=== PATIENT | male | born 2005 | race Caucasian/White ===

== ENCOUNTER 2024-03-17 04:59 | Emergency (ER) | payer MEDICAID ==
[~2024-03-17] VITALS: Ht 180.3 cm; Wt 77.0 kg
[2024-03-17 05:06] VITALS: TEMP 98.1; O2SAT 100
[2024-03-17] MEDS: ACETAMINOPHEN 325MG TABLET PO ONE (06:30)
[2024-03-17] MEDS ORDERED: TOPUD PO (06:46)
[2024-03-17] MEDS ORDERED: BO1 TP (06:46)
[2024-03-17] MEDS: BACITRACIN ZINC OINT UDPKT TOP ONE (07:15)
[2024-03-17 07:30] VITALS: BP 119/83; PULSE 75; RESP 16; O2SAT 100
== END 2024-03-17 08:36 | disposition home or self-care (01) ==
LOC: ER 05:47
DX: S60.512A Abrasion of left hand, initial encounter (principal); S60.511A Abrasion of right hand, initial encounter; R51.9 Headache, unspecified; X58.XXXA Exposure to other specified factors, initial encounter; Y93.89 Activity, other specified; Y92.89 Other specified places as the place of occurrence of the external cause; Y99.8 Other external cause status
CPT/HCPCS: 71101; 73120; 99284